=== PATIENT | male | born 1965 | race African-American/Black ===

== ENCOUNTER 2017-05-13 12:50 | Inpatient (IN) | payer MEDICARE, OTHER ==
[2017-05-13 14:44] VITALS: BMI 27.5
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
[2017-05-13] MEDS ORDERED: MAGNESIUM CITRATE 300 ML BOTTLE PO PRN (16:43)
[2017-05-13] MEDS ORDERED: chlordiazePOXIDE HCL 25 MG CAPSULE PO PRN (16:43)
[2017-05-13] MEDS ORDERED: MAG HYDROX/AL HYDROX/SIMETH 30 ML UNIT-DOSE CUP PO PRN (16:43)
[2017-05-13] MEDS ORDERED: hydrOXYzine PAMOATE 50 MG CAPSULE (FP) PO PRN (16:43)
[2017-05-13] MEDS ORDERED: guaiFENesin/D-METHORPHAN HB 10 ML UNIT-DOSE CUPS PO PRN (16:43)
[2017-05-13] MEDS ORDERED: LOPERAMIDE HCL 2 MG CAPSULE PO PRN (16:43)
[2017-05-13] MEDS ORDERED: P-EPHED 60MG/TRIPROLIDI 2.5MG TABLET PO PRN (16:43)
[2017-05-13] MEDS ORDERED: IBUPROFEN 400 MG TABLET (FP) PO PRN (16:43)
[2017-05-13] MEDS ORDERED: ACETAMINOPHEN 325 MG TABLET (FP) PO PRN (16:43)
[2017-05-13] MEDS ORDERED: MAGNESIUM HYDROX 2400MG/30ML ORAL SUSPENSION 30 ML CUP PO PRN (16:43)
[2017-05-13] MEDS ORDERED: MENTHOL/PHENOL 1 EACH UD MM PRN (16:43)
[2017-05-13] MEDS ORDERED: chlordiazePOXIDE HCL 25 MG CAPSULE PO ONE (17:30)
[2017-05-13] MEDS: PANTOPRAZOLE 40 MG TABLET (FP) PO SCH (17:58)
[2017-05-13] MEDS ORDERED: MELATONIN 5 MG TABLETS PO PRN (22:00)
[2017-05-13] MEDS: NAPROXEN 500 MG TABLET (FP) PO SCH (22:28)
[2017-05-13] MEDS: THIAMINE HCL 100 MG TABLET (FP) PO SCH (22:28)
[2017-05-13] MEDS: CYCLOBENZAPRINE HCL 10 MG TABLET (FP) PO SCH (22:28)
[2017-05-13] MEDS: chlordiazePOXIDE HCL 25 MG CAPSULE PO SCH (22:29)
[2017-05-13 22:50] LABS: URINE APPEARANCE CLEAR; URINE BILIRUBIN NEGATIVE (<2.0 mg/dL); URINE COLOR YELLOW; URINE GLUCOSE (UA) NEGATIVE (NEGATIVE); URINE KETONE NEGATIVE (NEGATIVE); URINE LEUK ESTERASE NEGATIVE (NEGATIVE); URINE NITRITE NEGATIVE (NEGATIVE); URINE PROTEIN NEGATIVE (NEGATIVE); URINE UROBILINOGEN 4.0 E.U/dl mg/dL (0.2-1.0)
[2017-05-14] MEDS: CYCLOBENZAPRINE HCL 10 MG TABLET (FP) PO SCH ×2 (06:15→22:22)
[2017-05-14] MEDS: chlordiazePOXIDE HCL 25 MG CAPSULE PO SCH ×4 (06:15→22:22)
[2017-05-14] MEDS ORDERED: PATIENT'S OWN MEDICATION (NON-FORMULARY) (Lipase/Protease/Amylase [Zenpep Dr 40,000 Unit C PO SCH (10:00)
[2017-05-14 10:15] LABS: HEMATOCRIT 37.9 % (35.4-49); HEMOGLOBIN 12.6 GM/dL (11.7-16.9); MCH 31.3 pg (25.7-33.7); MCHC 33.2 g/dl (32.0-35.9); MEAN CELL VOLUME 94.2 fl (80-96); MEAN PLT VOLUME 7.4 fl (7.5-11.1); PLATELET COUNT 266 K/MM3 (134-434); RBC 4.02 M/mm3 (4.00-5.60); RDW 14.7 % (11.9-15.9); WHITE BLOOD COUNT 3.8 K/mm3 (4.0-10.0)
[2017-05-14] MEDS: LIPASE/PROTEASE/AMYLASE 36,000 UNIT CAPSULE PO SCH ×3 (10:38→17:38)
[2017-05-14] MEDS: PRENATAL VITAMINS W/ FOLIC ACID TABLET (FP) PO SCH (10:38)
[2017-05-14] MEDS: amLODIPine BESYLATE 10 MG TABLET (FP) PO SCH (10:38)
[2017-05-14] MEDS: NAPROXEN 500 MG TABLET (FP) PO SCH ×2 (10:38→22:22)
[2017-05-14] MEDS: PANTOPRAZOLE 40 MG TABLET (FP) PO SCH (10:38)
[2017-05-14 10:59] LABS: ALBUMIN 3.2 g/dl (3.4-5.0); ANION GAP 10 (8-16); BLOOD UREA NITROGEN 7 mg/dL (7-18); CALCIUM 8.5 mg/dL (8.5-10.1); CHLORIDE 105 mmol/L (98-107); CO2 28 mmol/L (21-32); GLUCOSE,RANDOM 73 mg/dL (74-106); POTASSIUM 3.9 mmol/L (3.5-5.1); SODIUM 143 mmol/L (136-145)
--- NOTE | 2017-05-14 11:10 | EKG ---
Test Reason : Blood Pressure : / mmHG Vent. Rate : 084 BPM Atrial Rate : 084 BPM P-R Int : 126 ms QRS Dur : 082 ms QT Int : 372 ms P-R-T Axes : 062 071 063 degrees QTc Int : 439 ms NORMAL SINUS RHYTHM WITH SINUS ARRHYTHMIA NORMAL ECG NO PREVIOUS ECGS AVAILABLE Confirmed by GARY CAIN, SHANNON ([id number]) on 05/14/2017 11:09:55 AM Referred By: Confirmed By:SHANNON VEGA MD
[2017-05-14 11:14] LABS: ALK PHOS 102 U/L (45-117); BILIRUBIN,TOTAL 1.3 mg/dL (0.2-1.0); CREATININE 0.7 mg/dL (0.7-1.3); SGOT/AST 13 U/L (15-37); SGPT/ALT 11 U/L (12-78); TOT PROT 6.1 g/dl (6.4-8.2)
--- NOTE | 2017-05-14 11:59 | CONSULT ---
[facility] Psychiatric Consult - Data Date of interview: 05/14/17 Admission source: [facility] Identifying data: Pt. is a 51 year old male, , on disability (receiving SSD) and currently homeless. This [facility]. Pt. admitted to for alcohol and cocaine dependence. Substance Abuse History: Smoking Cessation. Smoking history: Never smoked. Aproximately how many cigarettes per day: 0. Hx Chewing Tobacco Use: No. Initiated information on smoking cessation: No. 'Breaking Loose' booklet given : 05/13/17. - Substance & Tx. History. Hx Alcohol Use: Yes (6 years ago [facility]). Hx Substance Use: No. Substance Use Type: Alcohol, Cocaine. Hx Substance Use Treatment: Yes ([facility]). - Substances Abused. Alcohol. Route: Oral. Frequency: Daily. Amount used: 8 beers. Age of first use: 23. Date of Last Use: 05/12/17. Cocaine. Route: Smoking. Frequency: 1-2 times per week. Amount used: 1 gram. Age of first use: 23. Date of Last Use: Medical History: Hypertension, Left ankle surgery Psychiatric History: Pt. reports seeing an outpatient psychiatrist one year ago and was started on zoloft. Pt. reports nonadherence to medications and outpatient treatment. Pt. denies h/o suicide attempts. Pt currently denies suicidal and homicidal ideation. Physical/Sexual Abuse/Trauma History: Denies. Mental Status Exam - Mental Status Exam Alert and Oriented to: Time, Place, Person Cognitive Function: Fair Patient Appearance: Unkempt Mood: Withdrawn Patient Behavior: Sedated (Pt. able to be awaken to complete interview. ), Fatigued, Guarded, Asleep Speech Pattern: Delayed Voice Loudness: Moderately Soft/Quiet Thought Process: Goal Oriented Thought Disorder: Not Present Hallucinations: Denies Suicidal Ideation: Denies Homicidal Ideation: Denies Insight/Judgement: Poor Sleep: Fair Appetite: Fair Muscle strength/Tone: Normal Gait/Station: Normal Psychiatric Findings - Problem List ([place] 1, 2,3) (1) Substance induced mood disorder Current Visit: Yes Status: Suspected (2) Alcohol dependence with uncomplicated withdrawal Current Visit: Yes Status: Acute (3) Cocaine abuse Current Visit: Yes Status: Acute - Initial Treatment Plan Initial Treatment Plan: Psychoeducation provided. Detoxification in progress. Observation.
[2017-05-14] MEDS ORDERED: FLU VACCINE QUAD 60 MCG/0.5 ML (MDV 17-18) IM ONE (13:00)
--- NOTE | 2017-05-14 17:29 | PN ---
S CIWA - CIWA Score Nausea/Vomitin-No Nausea/No Vomiting Muscle Tremors: 3 Anxiety: 5 Agitation: 4-Moderately Restless Paroxysmal Sweats: 3 Orientation: 0-Oriented Tacttile Disturbances: 3-Moderate Itch/Numb/Burn Auditory Disturbances: 0-None Visual Disturbances: 0-None Headache: 0-None Present CIWA-Ar Total Score: 18 BHS Progress Note (SOAP) Subjective: Anxious, Body Aches, Sweating, Interrupted Sleep. Objective: PATIENT A & O X 3, OBSERVED AMBULATING ON UNIT. NO ACUTE DISTRESS. 05/14/17 17:28 Vital Signs Temperature 98.0 F 05/14/17 14:04 Pulse Rate 80 05/14/17 14:04 Respiratory Rate 18 05/14/17 14:04 Blood Pressure 120/62 05/14/17 14:04 O2 Sat by Pulse Oximetry (%) Laboratory Tests 05/13/17 05/14/17 05/14/17 22:30 07:00 07:00 WBC 3.8 L RBC 4.02 Hgb 12.6 Hct 37.9 MCV 94.2 MCH 31.3 MCHC 33.2 RDW 14.7 Plt Count 266 MPV 7.4 L Sodium 143 Potassium 3.9 Chloride 105 Carbon Dioxide 28 Anion Gap 10 BUN 7 Creatinine 0.7 Creat Clearance w eGFR > 60 Random Glucose 73 L Calcium 8.5 Total Bilirubin 1.3 H AST 13 L ALT 11 L Alkaline Phosphatase 102 Total Protein 6.1 L Albumin 3.2 L Urine Color Yellow Urine Appearance Clear Urine pH 5.0 Ur Specific [place] 1.011 Urine Protein Negative Urine Glucose (UA) Negative Urine Ketones Negative Urine Blood Negative Urine Nitrite Negative Urine Bilirubin Negative Urine Urobilinogen 4.0 e.u/dl Ur Leukocyte Esterase Negative RPR Titer 05/14/17 07:00 WBC RBC Hgb Hct MCV MCH MCHC RDW Plt Count MPV Sodium Potassium Chloride Carbon Dioxide Anion Gap BUN Creatinine Creat Clearance w eGFR Random Glucose Calcium Total Bilirubin AST ALT Alkaline Phosphatase Total Protein Albumin Urine Color Urine Appearance Urine pH Ur Specific [place] Urine Protein Urine Glucose (UA) Urine Ketones Urine Blood Urine Nitrite Urine Bilirubin Urine Urobilinogen Ur Leukocyte Esterase RPR Titer Nonreactive LABS NOTED. Assessment: 05/14/17 17:29 WITHDRAWAL SYMPTOMS. Plan: CONTINUE DETOX. INCREASE DAILY PO FLUID INTAKE.
[2017-05-14] MEDS: TRIMETHOPRIM OD SCH (22:22)
[2017-05-14] MEDS: THIAMINE HCL 100 MG TABLET (FP) PO SCH (22:22)
[2017-05-15] MEDS: CYCLOBENZAPRINE HCL 10 MG TABLET (FP) PO SCH ×2 (06:23→14:01)
[2017-05-15] MEDS: chlordiazePOXIDE HCL 25 MG CAPSULE PO SCH ×3 (06:23→17:20)
[2017-05-15] MEDS: LIPASE/PROTEASE/AMYLASE 36,000 UNIT CAPSULE PO SCH ×3 (07:11→17:20)
[2017-05-15] MEDS ORDERED: LIDOCAINE 5% TOPICAL PATCH TP SCH (10:45)
[2017-05-15] MEDS: TRIMETHOPRIM OD SCH ×2 (10:49→22:17)
[2017-05-15] MEDS: PANTOPRAZOLE 40 MG TABLET (FP) PO SCH (10:49)
[2017-05-15] MEDS: NAPROXEN 500 MG TABLET (FP) PO SCH ×2 (10:49→22:16)
[2017-05-15] MEDS: amLODIPine BESYLATE 10 MG TABLET (FP) PO SCH (10:49)
[2017-05-15] MEDS: PRENATAL VITAMINS W/ FOLIC ACID TABLET (FP) PO SCH (10:49)
--- NOTE | 2017-05-15 10:55 | PN ---
[facility] CIWA - CIWA Score Nausea/Vomitin-No Nausea/No Vomiting Muscle Tremors: 4-Moderate,w/Arms Extend Anxiety: 5 Agitation: 5 Paroxysmal Sweats: 1-Minimal Palms Moist Orientation: 0-Oriented Tacttile Disturbances: 0-None Auditory Disturbances: 0-None Visual Disturbances: 0-None Headache: 0-None Present CIWA-Ar Total Score: 15 BHS Progress Note (SOAP) Subjective: ANXIETRY,IRRITABILITY,RESTLESS,PAIN TO LEFT LEG, S/P METAL ZENA IN LEG-TAKES PERCOCETS, BACLOFEN AND LIDOCAINE TP OINTMENT OUTSIDE. REPORTS USES VIDAL FOR AMBULATION. Objective: 05/15/17 10:53 Vital Signs Temperature 99.1 F 05/15/17 09:25 Pulse Rate 85 05/15/17 09:25 Respiratory Rate 16 05/15/17 09:25 Blood Pressure 122/85 05/15/17 09:25 O2 Sat by Pulse Oximetry (%) Laboratory Last Values WBC 3.8 K/mm3 (4.0-10.0) L 05/14/17 07:00 RBC 4.02 M/mm3 (4.00-5.60) 05/14/17 07:00 Hgb 12.6 GM/dL (11.7-16.9) 05/14/17 07:00 Hct 37.9 % (35.4-49) 05/14/17 07:00 MCV 94.2 fl (80-96) 05/14/17 07:00 MCH 31.3 pg (25.7-33.7) 05/14/17 07:00 MCHC 33.2 g/dl (32.0-35.9) 05/14/17 07:00 RDW 14.7 % (11.9-15.9) 05/14/17 07:00 Plt Count 266 K/MM3 (134-434) 05/14/17 07:00 MPV 7.4 fl (7.5-11.1) L 05/14/17 07:00 Sodium 143 mmol/L (136-145) 05/14/17 07:00 Potassium 3.9 mmol/L (3.5-5.1) 05/14/17 07:00 Chloride 105 mmol/L (98-107) 05/14/17 07:00 Carbon Dioxide 28 mmol/L (21-32) 05/14/17 07:00 Anion Gap 10 (8-16) 05/14/17 07:00 BUN 7 mg/dL (7-18) 05/14/17 07:00 Creatinine 0.7 mg/dL (0.7-1.3) 05/14/17 07:00 Creat Clearance w eGFR > 60 (>60) 05/14/17 07:00 Random Glucose 73 mg/dL (74-106) L 05/14/17 07:00 Calcium 8.5 mg/dL (8.5-10.1) 05/14/17 07:00 Total Bilirubin 1.3 mg/dL (0.2-1.0) H 05/14/17 07:00 AST 13 U/L (15-37) L 05/14/17 07:00 ALT 11 U/L (12-78) L 05/14/17 07:00 Alkaline Phosphatase 102 U/L (45-117) 05/14/17 07:00 Total Protein 6.1 g/dl (6.4-8.2) L 05/14/17 07:00 Albumin 3.2 g/dl (3.4-5.0) L 05/14/17 07:00 Urine Color Yellow 05/13/17 22:30 Urine Appearance Clear 05/13/17 22:30 Urine pH 5.0 (5.0-8.0) 05/13/17 22:30 Ur Specific [place] 1.011 (1.001-1.035) 05/13/17 22:30 Urine Protein Negative (NEGATIVE) 05/13/17 22:30 Urine Glucose (UA) Negative (NEGATIVE) 05/13/17 22:30 Urine Ketones Negative (NEGATIVE) 05/13/17 22:30 Urine Blood Negative (NEGATIVE) 05/13/17 22:30 Urine Nitrite Negative (NEGATIVE) 05/13/17 22:30 Urine Bilirubin Negative (<2.0 mg/dL) 05/13/17 22:30 Urine Urobilinogen 4.0 e.u/dl mg/dL (0.2-1.0) 05/13/17 22:30 Ur Leukocyte Esterase Negative (NEGATIVE) 05/13/17 22:30 RPR Titer Nonreactive (NONREACTIVE) 05/14/17 07:00 Assessment: 05/15/17 10:54 WITHDRAWAL SX CHRONIC LEFT LEG PAIN Plan: CONTINUE DETOX BACLOPHEN AND LIDOCAINE OINTMENT DIRECTED. PROVIDE CANE FOR AMBULATION INCREASE PO FLUIDS.
[2017-05-15] MEDS ORDERED: BACLOFEN 10 MG TABLET (FP) PO SCH (14:00)
[2017-05-15] MEDS: AMMONIUM LACTATE 12% LOTION 225 GM BOTTLE TP SCH (15:26)
[2017-05-15] MEDS: LIDOCAINE HCL 5% TOP OINTMENT 50 GM TUBE TP SCH ×2 (15:26→22:17)
[2017-05-15] MEDS: BACLOFEN 10 MG TABLET (FP) PO SCH ×2 (15:30→22:17)
[2017-05-15] MEDS ORDERED: LIDOCAINE PATCH REMOVAL MC SCH (22:00)
[2017-05-15] MEDS: THIAMINE HCL 100 MG TABLET (FP) PO SCH (22:16)
[2017-05-15] MEDS: chlordiazePOXIDE 5 MG CAPSULE PO SCH (22:16)
[2017-05-16] MEDS: chlordiazePOXIDE 5 MG CAPSULE PO SCH ×3 (05:00→17:36)
[2017-05-16] MEDS: BACLOFEN 10 MG TABLET (FP) PO SCH ×3 (05:53→23:36)
[2017-05-16] MEDS: LIPASE/PROTEASE/AMYLASE 36,000 UNIT CAPSULE PO SCH ×3 (07:55→17:36)
[2017-05-16] MEDS: AMMONIUM LACTATE 12% LOTION 225 GM BOTTLE TP SCH (10:48)
[2017-05-16] MEDS: TRIMETHOPRIM OD SCH ×2 (10:49→23:36)
[2017-05-16] MEDS: PANTOPRAZOLE 40 MG TABLET (FP) PO SCH (10:49)
[2017-05-16] MEDS: amLODIPine BESYLATE 10 MG TABLET (FP) PO SCH (10:49)
[2017-05-16] MEDS: LIDOCAINE HCL 5% TOP OINTMENT 50 GM TUBE TP SCH ×2 (10:49→23:36)
[2017-05-16] MEDS: NAPROXEN 500 MG TABLET (FP) PO SCH ×2 (10:49→23:36)
[2017-05-16] MEDS: PRENATAL VITAMINS W/ FOLIC ACID TABLET (FP) PO SCH (10:49)
--- NOTE | 2017-05-16 14:35 | PN ---
BHS Progress Note (SOAP) Subjective: Fatigue, Stomach Cramping, Anxious. Objective: PATIENT A & O X 3, OBSERVED AMBULATING ON UNIT. NO ACUTE DISTRESS. 05/16/17 14:34 Vital Signs Temperature 98.0 F 05/16/17 13:15 Pulse Rate 94 H 05/16/17 13:15 Respiratory Rate 18 05/16/17 13:15 Blood Pressure 115/70 05/16/17 13:15 O2 Sat by Pulse Oximetry (%) Laboratory Tests 05/13/17 05/14/17 05/14/17 22:30 07:00 07:00 WBC 3.8 L RBC 4.02 Hgb 12.6 Hct 37.9 MCV 94.2 MCH 31.3 MCHC 33.2 RDW 14.7 Plt Count 266 MPV 7.4 L Sodium 143 Potassium 3.9 Chloride 105 Carbon Dioxide 28 Anion Gap 10 BUN 7 Creatinine 0.7 Creat Clearance w eGFR > 60 Random Glucose 73 L Calcium 8.5 Total Bilirubin 1.3 H AST 13 L ALT 11 L Alkaline Phosphatase 102 Total Protein 6.1 L Albumin 3.2 L Urine Color Yellow Urine Appearance Clear Urine pH 5.0 Ur Specific [place] 1.011 Urine Protein Negative Urine Glucose (UA) Negative Urine Ketones Negative Urine Blood Negative Urine Nitrite Negative Urine Bilirubin Negative Urine Urobilinogen 4.0 e.u/dl Ur Leukocyte Esterase Negative RPR Titer 05/14/17 07:00 WBC RBC Hgb Hct MCV MCH MCHC RDW Plt Count MPV Sodium Potassium Chloride Carbon Dioxide Anion Gap BUN Creatinine Creat Clearance w eGFR Random Glucose Calcium Total Bilirubin AST ALT Alkaline Phosphatase Total Protein Albumin Urine Color Urine Appearance Urine pH Ur Specific [place] Urine Protein Urine Glucose (UA) Urine Ketones Urine Blood Urine Nitrite Urine Bilirubin Urine Urobilinogen Ur Leukocyte Esterase RPR Titer Nonreactive LABS NOTED. Assessment: 05/16/17 14:35 WITHDRAWAL SYMPTOMS. Plan: CONTINUE DETOX. INCREASE DAILY PO FLUID INTAKE.
[2017-05-16] MEDS: chlordiazePOXIDE HCL 10 MG CAPSULE PO SCH (23:35)
[2017-05-16] MEDS: THIAMINE HCL 100 MG TABLET (FP) PO SCH (23:36)
[2017-05-17] MEDS: chlordiazePOXIDE HCL 10 MG CAPSULE PO SCH (05:49)
[2017-05-17] MEDS: BACLOFEN 10 MG TABLET (FP) PO SCH ×2 (05:52→05:55)
[2017-05-17] MEDS: LIPASE/PROTEASE/AMYLASE 36,000 UNIT CAPSULE PO SCH (07:34)
[2017-05-17 09:27] VITALS: BP 109/64; PULSE 89; TEMP 97.4
--- NOTE | 2017-05-17 11:49 | DS ---
[facility] Detox Discharge Summary Admission Date: 05/13/17 Discharge Date: 05/17/17 - History Present History: Alcohol Dependence Pertinent Past History: HTN Pancreatitis Obstructive sleep apnea - Physical Exam Results Vital Signs: Vital Signs Temperature 97.4 F L 05/17/17 09:20 Pulse Rate 89 05/17/17 09:20 Respiratory Rate 18 05/17/17 09:20 Blood Pressure 109/64 05/17/17 09:20 O2 Sat by Pulse Oximetry (%) Pertinent Admission Physical Exam Findings: Withdrawal symptoms Laboratory Tests 05/13/17 05/14/17 05/14/17 22:30 07:00 07:00 WBC 3.8 L RBC 4.02 Hgb 12.6 Hct 37.9 MCV 94.2 MCH 31.3 MCHC 33.2 RDW 14.7 Plt Count 266 MPV 7.4 L Sodium 143 Potassium 3.9 Chloride 105 Carbon Dioxide 28 Anion Gap 10 BUN 7 Creatinine 0.7 Creat Clearance w eGFR > 60 Random Glucose 73 L Calcium 8.5 Total Bilirubin 1.3 H AST 13 L ALT 11 L Alkaline Phosphatase 102 Total Protein 6.1 L Albumin 3.2 L Urine Color Yellow Urine Appearance Clear Urine pH 5.0 Ur Specific [place] 1.011 Urine Protein Negative Urine Glucose (UA) Negative Urine Ketones Negative Urine Blood Negative Urine Nitrite Negative Urine Bilirubin Negative Urine Urobilinogen 4.0 e.u/dl Ur Leukocyte Esterase Negative RPR Titer 05/14/17 07:00 WBC RBC Hgb Hct MCV MCH MCHC RDW Plt Count MPV Sodium Potassium Chloride Carbon Dioxide Anion Gap BUN Creatinine Creat Clearance w eGFR Random Glucose Calcium Total Bilirubin AST ALT Alkaline Phosphatase Total Protein Albumin Urine Color Urine Appearance Urine pH Ur Specific [place] Urine Protein Urine Glucose (UA) Urine Ketones Urine Blood Urine Nitrite Urine Bilirubin Urine Urobilinogen Ur Leukocyte Esterase RPR Titer Nonreactive Labs noted - Treatment Hospital Course: Detox Protocol Followed, Detoxed Safely, Responded well, Discharged Condition Good - Medication Discharge Medications: Ambulatory Orders Amlodipine Besylate [Norvasc -] 10 mg PO DAILY 05/13/17 Lipase/Protease/Amylase [Zenpep Dr 40,000 Unit Capsule] 40,000 units PO DAILY Trimethoprim 1 drop OD BID 05/14/17 Baclofen 10 mg PO TID 05/15/17 Lidocaine 5% Top. Ointment [Xylocaine 5% Top. Ointment] 1 applic TP BID - Diagnosis (1) Anxiety Status: Chronic (2) Insomnia Status: Chronic (3) Alcohol dependence with uncomplicated withdrawal Status: Acute (4) Cocaine abuse Status: Acute (5) Depression Status: Chronic Qualifiers: Depression Type: unspecified Qualified Code(s): F32.9 - Major depressive disorder, single episode, unspecified (6) Pancreatitis Status: Acute Qualifiers: Chronicity: chronic Pancreatitis type: unspecified pancreatitis type Qualified Code(s): K86.1 - Other chronic pancreatitis (7) Sleep apnea treated with nocturnal BiPAP Status: Acute (8) HTN (hypertension) Status: Chronic Qualifiers: Hypertension type: unspecified Qualified Code(s): I10 - Essential (primary ) hypertension (9) Substance induced mood disorder Status: Acute - AMA Did Patient Leave Against Medical Advice: No (Follow up with your PCP within 1- 2 weeks)
== END 2017-05-17 09:42 | disposition home or self-care (01) | DRG 897 ==
LOC: YASAS 12:50 → Y3N 17:10
PROVIDERS: ADMIT Internal Medicine; ATTEND Internal Medicine
PROC: HZ2ZZZZ Detoxification Services for Substance Abuse Treatment (ICD-10-PCS; principal; 2017-05-13)
DX: F10.230 Alcohol dependence with withdrawal, uncomplicated (principal); K86.1 Other chronic pancreatitis; F14.10 Cocaine abuse, uncomplicated; F19.24 Other psychoactive substance dependence with psychoactive substance-induced mood disorder; F41.9 Anxiety disorder, unspecified; F32.9 Major depressive disorder, single episode, unspecified; F43.29 Adjustment disorder with other symptoms; I10 Essential (primary) hypertension; G47.00 Insomnia, unspecified; G47.30 Sleep apnea, unspecified; M12.572 Traumatic arthropathy, left ankle and foot; Z99.89 Dependence on other enabling machines and devices
CPT/HCPCS: 36415; 80053; 81003; 85027; 86593; 90688; 93005; 93010; G0008; J0475